=== PATIENT | male | born 1975 | race African-American/Black ===

== ENCOUNTER → 2018-05-13 | Outpatient (CLI) | payer OTHER ==
[~2018-05-13] MED LIST: CARI350T14 PO; COLC0.6T34 PO; EPIPEN 2-P0.3 MG/0.3 IJ; ESCITALOPRAM OX20 MG PO; GABA300C18 PO; GALC120P SQ; HYDR-2769 PO; INDO75CA3 PO; MONT10TA9 PO; NAPR500T8 PO; SUMA100T4 PO
--- NOTE | 2018-05-14 05:43 | KCIC ---
MRI lumbar spine without contrast HISTORY: Low back pain Multiple sagittal imaging of the lumbar spine was performed without contrast. The vertebral bodies are well aligned is no loss of vertebral stature. The conus medullaris tapers by suspected anatomic level. There is mild diffuse circumferential disc bulge without significant central stenosis. The neuroforamen are patent. There is mild signal changes in the L5-S1 intervertebral disc. IMPRESSION: No acute findings. Electronically signed by: Uvaldo Mayers III, MD (05/14/2018 5:40 AM) [facility]
== END | disposition home or self-care (01) ==
LOC: KCIC MRI 16:34
PROVIDERS: ATTEND Physician Assistant Medical
DX: M54.5 Low back pain (principal)
CPT/HCPCS: 72148

== ENCOUNTER → 2018-07-16 | Outpatient (CLI) | payer OTHER ==
--- NOTE | 2018-07-16 20:07 | PAIN ---
DATE OF SERVICE: 07/16/2018 INITIAL CONSULTATION FOR PAIN CLINIC CHIEF COMPLAINT: Low back and right lower extremity pain. HISTORY OF PRESENT ILLNESS: The patient is a 43-year-old male who presents with history of pain, low back, right lower extremity for several years, worse over the past six months or so. The patient is on his feet most of his working day. 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 He is working 12-16 hour days, most days, sometimes seven days a week. The patient reports the pain in the low back and then spread into the right lower extremity, posterior gluteus, posterior thigh, posterior calf, into the foot involving all the toes and mostly in the lateral aspect of the foot. The patient reports it is worse with standing, walking as time goes by, standing on his feet; awakens him from sleep at least three times a night; does not affect his bowel or bladder control, but does affect his ability to walk. He is starting to favor his right leg significantly, is causing some pain in the left side of his low back when he is standing on the left side more. The patient reports the pain is constant, sharp, stabbing, throbbing, shooting, numbness and radiating pain in the right leg, worse as time goes on with activity, cramping and aching as well in the back and the leg, also some pain in the upper and mid back, which has developed after his low back started hurting. The patient reports a disability rate from 0-10, 10 being the worst, is an 8 with family and home responsibilities, 7 with recreation, 6 with social activity, 9 with occupation and 3 with sexual behavior, 7 with social activity and 10 with life support activities. The patient has been taking hydrocodone as well as oxycodone and Soma, all of which do decrease the pain to a fairly significant amount about 50%. The patient has been doing some stretching and strengthening exercises on his own at home and also has his goddaughter who has been doing massage therapy to him as she is trained for therapy and has been doing some therapy on his own at home with her as well as stretching and strengthening exercises and massage techniques that she has been doing at home, but no official therapy or chiropractic treatments at this time. The patient continues to stretch each morning as well as during the day and during his working hours, especially at night when the pain is worse. The patient did have an MRI scan of the lumbar spine showing mild diffuse circumferential disk bulge without central stenosis and mild signal change at the L5-S1 vertebral disk. Other disks were normal. PAST MEDICAL HISTORY: Significant for sleep apnea, gastroesophageal reflux, coronary artery disease, status post stent placement about 10 years ago, arthritis, migraine headaches, and gout. PREVIOUS SURGERIES: Include laparoscopic cholecystectomy, kidney stone, and cardiac stent placement. ALLERGIES: THE PATIENT IS ALLERGIC TO PORK. CURRENT MEDICATIONS: Include sumatriptan, EpiPen, escitalopram, hydrocodone, indomethacin, gabapentin, montelukast, carisoprodol, naproxen, colchicine and Emgality once monthly. FAMILY HISTORY: Significant for hypertension in the patient's parents and myocardial infarction in the patient's father, also gout in the patient's mother. SOCIAL HISTORY: The patient drinks alcohol about two drinks a week. Does not smoke, does not use any illegal, illicit or recreational drugs. 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 REVIEW OF SYSTEMS: Positive for those items mentioned in history of present illness. All systems reviewed and otherwise negative. It is complete, full and well documented on the patient's chart. PHYSICAL EXAMINATION: VITAL SIGNS: The patient's blood pressure , pulse is 83, respirations 18, temperature is 98.3 degrees Fahrenheit, height 6 feet 5 inches, weight is 241 pounds. GENERAL: The patient is awake, alert, oriented, appropriate, very pleasant demeanor. HEENT: Head shows normocephalic, atraumatic. Extraocular muscles are intact and symmetrical. Oral cavity: Mucous membranes moist and pink. Dentition is intact. NECK: Shows anterior throat supple without palpable lymphadenopathy noted. Swallow reflex is symmetrical. CHEST: Shows normal on inspection. Breath sounds clear to auscultation bilaterally. HEART: Shows S1, S2 clear. No murmurs auscultated. ABDOMEN: Soft, obese, nontender, nondistended. No palpable organomegaly is noted. No rebound or guarding demonstrated. BACK: Shows spine grossly in the midline, normal-appearing cervical lordotic curvature, thoracic kyphotic curvature and lumbar lordotic curvature. Lumbar paraspinous musculature shows symmetrical on inspection, slightly more tender on the left side than the right with palpation in the mid and low distribution of the paraspinous muscles. No tenderness over the spinous processes, sacrum or sacroiliac regions. The patient has good rotational motion both laterally greater than 10 degrees right and left as well as extension greater than 10 degrees, forward flexion 45 degrees without significant increase in pain. EXTREMITIES: The patient's lower extremities are equal in color and appearance, warm and dry to the touch. Peripheral pulses are 1+ posterior tibial and dorsalis pedis pulses. No peripheral edema is noted on exam bilaterally. Gaenslen's and Oscar's maneuvers are negative bilaterally. The patient's straight leg raise is mildly positive on the right about 40 degrees, decreased with knee flexion, but left side is negative. The patient is douglas to stand, stand on the toes without significant difficulty or loss of balance, walking with a slight favoring gait favoring the right lower extremity. He is not using any assistive devices such as canes or walkers to ambulate. SKIN: Shows warm and dry, good turgor. No edema. No sores, rashes or bruising throughout. IMPRESSION: 1. This is a 43-year-old male with several-year history of increasing pain, low back, right lower extremity in a radicular fashion, worse over the past six months or so with L5-S1 dermatomal distribution in the radicular pain. 2. MRI scan of lumbar spine as noted with degenerative change at L5-S1. 3. Hypertension. 4. Arthritis. PLAN: Options were discussed with the patient including conservative medical management, physical therapy, interventional techniques and he would like to pursue interventional techniques as he is doing some physical therapy on his own, stretching and strengthening exercises. We will also order physical therapy for his midback for myofascial treatment and postural retraining. Also, we will preauthorize the patient for lumbar epidural steroid injection at the L5-S1 level in a translaminar approach for his L5-S1 neck and radicular symptoms. The patient understands and agrees. We will wait for preauthorization. The patient will return to clinic in approximately one week and we will plan on lumbar epidural steroid injection at that time. TANJA BARKLEY MD DR: SULY/mendez JOB#: [id number] / [id number]
== END | disposition home or self-care (01) ==
LOC: PNCL 08:07
PROVIDERS: ATTEND Anesthesiology
DX: M79.661 Pain in right lower leg (principal); M47.817 Spondylosis without myelopathy or radiculopathy, lumbosacral region; I10 Essential (primary) hypertension; M13.80 Other specified arthritis, unspecified site; M54.5 Low back pain; K21.9 Gastro-esophageal reflux disease without esophagitis; I25.10 Atherosclerotic heart disease of native coronary artery without angina pectoris; M10.9 Gout, unspecified; Z90.49 Acquired absence of other specified parts of digestive tract; Z95.818 Presence of other cardiac implants and grafts; G47.30 Sleep apnea, unspecified; Z91.018 Allergy to other foods
CPT/HCPCS: G0463

== ENCOUNTER → 2018-08-08 | Outpatient (CLI) | payer OTHER ==
[~2018-08-08] MED LIST changes: +IOHEXOL 180 MG/ML 10 ML VIAL. ONE; +MONT10TA49 PO; -MONT10TA9 PO; +methylPREDNISolone ACETATE 40 MG/ML VIAL. ONE; +methylPREDNISolone ACETATE 80 MG/ML VIAL. ONE
--- NOTE | 2018-08-08 19:25 | PAIN ---
DATE OF SERVICE: 08/08/2018 DIAGNOSES: Lumbar radiculopathy with lumbar degenerative disk disease. HISTORY OF PRESENT ILLNESS: The patient is a 43-year-old male who returns for followup status post initial evaluation and preauthorization for lumbar epidural steroid injection. The patient has obtained this now and would like to proceed, still pain in the low back, right lower extremity as it was previously and posterior gluteus, posterior thigh, posterior calf, worse with walking, standing, change in positions. The patient reports his pain on the last week at its worst has been 8 on a scale of 10, average 7, least is a 7 and is a 7 today. The patient reports no new motor or sensory deficits, no new bowel or bladder incontinence, still wakes him about 3-4 times a night from sleep. The patient reports it is aching, sharp, tight, shooting, tingling, radiating, severe and constant at times with standing and walking, especially at work when he is on his feet most of his working day. The patient reports no new motor or sensory deficits, no new bowel or bladder incontinence or other complaints. PHYSICAL EXAMINATION: VITAL SIGNS: The patient's blood pressure 138/64, pulse 70, respirations 18, temperature is 98.1 degrees Fahrenheit, height is 6 feet 5 inches, weight is 240 pounds. GENERAL: The patient is awake, alert, oriented, appropriate, very pleasant demeanor. HEENT: Shows normocephalic, atraumatic. Extraocular movements are intact and symmetrical. Oral cavity: Mucous membranes moist and pink. Dentition is intact. NECK: Shows anterior throat supple without palpable lymphadenopathy noted. Swallow reflex is symmetrical. CHEST: Shows normal on inspection. Breath sounds clear to auscultation bilaterally. HEART: Shows S1, S2 clear. No murmurs auscultated. ABDOMEN: Soft, nontender, nondistended. No palpable organomegaly is noted. No rebound or guarding demonstrated. BACK: Shows spine grossly in the midline. Normal appearing thoracic kyphosis and lumbar lordotic curvature. Lumbar paraspinous musculature shows symmetrical on inspection and palpation shows some moderate tenderness diffusely bilaterally, but without specific radiation. The patient shows good rotational motion of the lumbar spine, both laterally as well as extension and flexion. EXTREMITIES: Lower extremities show deep tendon reflexes 2+ in the patellar, 1+ tendo-calcaneus tendons. Motor exam is approximately 4 on a scale of 5 on the right and 5/5 on the left with dorsiflexion and extension. Peripheral pulses are 1+ posterior tibial. No peripheral edema is noted. Options were discussed with the patient. The patient's old chart was reviewed as his current medication regimen and updated. Current review of systems is updated today as well. We will proceed with a lumbar epidural steroid injection today with fluoroscopic guidance. Risks were again discussed including, but not limited to bleeding, infection, possibility of epidural hematoma, subsequent neurologic compromise, dural puncture, headaches, spinal cord and/or nerve damage, side effects of steroid medication and poor results regarding pain control. The patient understands and wished to proceed. The patient will return to clinic in approximately two weeks for followup, was counseled as to return appointment, activity level and side effects to be aware of. DIAGNOSES: Lumbar radiculopathy with lumbar degenerative disk disease. PROCEDURE: Lumbar epidural steroid injection, translaminar approach, L5-S1 level using C-arm fluoroscopic guidance under sterile prep and drape using local anesthetic. MEDICATION INJECTED: A total of 120 mg Depo-Medrol plus 10 mL preservative-free normal saline and 2 mL of contrast. CONDITION AT DISCHARGE: Stable. The patient tolerated the procedure well, had no complications. TANJA BARKLEY MD DR: SULY/mendez JOB#: [id number] / [id number]
== END ==
LOC: PNCL 13:51
PROVIDERS: ATTEND Anesthesiology
DX: M51.16 Intervertebral disc disorders with radiculopathy, lumbar region (principal)
CPT/HCPCS: 62323; J1030; J1040; Q9965

== ENCOUNTER → 2018-09-11 | Outpatient (CLI) | payer OTHER ==
[~2018-09-11] MED LIST changes: -IOHEXOL 180 MG/ML 10 ML VIAL. ONE; -methylPREDNISolone ACETATE 40 MG/ML VIAL. ONE; -methylPREDNISolone ACETATE 80 MG/ML VIAL. ONE
--- NOTE | 2018-09-11 23:32 | PAIN ---
DATE OF SERVICE: 09/11/2018 DIAGNOSES: Lumbar radiculopathy with lumbar degenerative disk disease. HISTORY OF PRESENT ILLNESS: The patient is a 43-year-old male who returns for followup status post lumbar epidural steroid injection x 1. The patient reports about 55-60% improvement after the last injection in the low back and the right lower extremity. The patient reports no new motor or sensory deficits, no new bowel or bladder incontinence, but still significant pain in the low back and the right leg. The patient reports he was increasing activity with greater ease and comfort initially, but now the pain has returned after the first 2 weeks or so with decreased pain. The patient reports no new motor or sensory deficits, describes the pain in the low back and right lower extremity, mostly in the posterior gluteus, posterior lateral thigh, posterior calf and ankle and foot, worse with walking and standing. Reports aching, sharp, tight, shooting, tingling, burning and stabbing, radiating, becoming more constant, more severe with activity, better with sitting or lying down, but for the most part is a 10 on a scale of 10 over the past week when he is on his feet, better with sitting and about 5 on a scale of 10, average of about 8. The patient reports his pain is an 8 today. The patient reports no new motor or sensory deficits, no new bowel or bladder incontinence. It still awakens him from sleep at night occasionally, but not every night, better with applying heat, taking pain medication or changing positions. PHYSICAL EXAMINATION: VITAL SIGNS: The patient's blood pressure 126/90, pulse 83, respirations 18, temperature 98.4 degrees Fahrenheit, height is 6 feet 5 inches and weight is 240 pounds. GENERAL: The patient is awake, alert, oriented, appropriate, very pleasant demeanor. HEENT: Head is normocephalic, atraumatic. Extraocular movements are intact, symmetrical. Oral cavity: Mucous membranes moist and pink. Dentition is intact. NECK: Shows anterior throat supple without palpable lymphadenopathy noted. No rebound or guarding demonstrated. BACK: Shows lumbar spine in the midline with inspection, on palpation has some moderate tenderness bilaterally, although symmetrical lumbar paraspinous musculature tenderness diffusely throughout the upper, middle and lower distribution of paraspinous muscles. The patient does show good rotational motion of lumbar spine, however, both laterally as well as extension and flexion without significant difficulty. EXTREMITIES: The patient's lower extremities show deep tendon reflexes at 2+ in the patellar, 1+ in the tendo-calcaneus tendons. Motor exam is approximately 4 on a scale of 5 on the right with dorsiflexion and extension, 5/5 on the left. Peripheral pulses are 1+ posterior tibial. No peripheral edema is noted. The patient continues to have a positive straight leg raise on the right side of about 35-40 degrees, decreased with knee flexion and negative on the left. Options were discussed with the patient. The patient's old chart was reviewed. His current medication regimen updated. Current review of systems updated today as well. We will proceed with preauthorization for a second lumbar epidural steroid injection. He did very well with the first injection, now the pain is returning, however, in the low back and right lower extremity in a L5-S1 dermatomal distribution on the right. We will preauthorize the patient for a second translaminar injection at L5-S1 level. In the meantime, we will try Medrol Dosepak. The patient was given instructions and side effects to be aware of with the medication and will follow up in approximately 2 weeks as scheduled for a second lumbar epidural steroid injection at that time. TANJA BARKLEY MD DR: SULY/mendez JOB#: [id number] / [id number]
== END | disposition home or self-care (01) ==
LOC: PNCL 13:29
PROVIDERS: ATTEND Anesthesiology
DX: M51.16 Intervertebral disc disorders with radiculopathy, lumbar region (principal)
CPT/HCPCS: G0463

== ENCOUNTER → 2019-03-11 | Outpatient (CLI) | payer OTHER ==
--- NOTE | 2019-03-11 09:25 | PAIN ---
DATE OF SERVICE: 03/11/2019 PROGRESS NOTE FOR PAIN CLINIC DIAGNOSES: Lumbar radiculopathy with lumbar degenerative disk disease. HISTORY OF PRESENT ILLNESS: The patient is a 43-year-old male, who returns for followup status post lumbar epidural steroid injection, last seen 09/11/2018. The patient was about 50% improvement overall. For the first few weeks, it was about 75%-80% improvement for about 3 weeks, then the pain began to return gradually over the last several months. The patient reports the pain has returned, but it is still about 50% improvement. The patient reports the pain is returning now more noticeably in the bilateral lower extremities, posterior gluteus, posterior thighs, more on the right than the left, but present bilaterally into the lower legs as well. The patient reports the pain in the knees also with walking, standing, changing positions, better with sitting or lying down. The patient reports it has been awakening him from sleep again over the past month or so, about 4-5 times at night. The patient reports it is aching, sharp and tight, stabbing and shooting in the low back, rates a 10 on a scale of 10 at its worst, 10 on average and 9 at its least, is a 9 today. The patient reports no new motor or sensory deficits. No new bowel or bladder incontinence. Initially, he was doing much better, doing distance walking, doing work activities, household activities, traveling with greater ease and comfort. Again the pain returning now for about the past 4 weeks or so. The patient reports no new changes, still doing some stretching and strengthening exercises on his own at home. Medications have been the same as well. The patient is still taking naproxen, gabapentin, indomethacin on a p.r.n. basis and hydrocodone and he has been on very stable dose of these as well. The patient reports no new motor or sensory deficits. No new bowel or bladder incontinence or other complaints. PHYSICAL EXAMINATION: VITAL SIGNS: The patient's blood pressure 137/97, pulse 91, respirations 18, temperature 97.9 degrees Fahrenheit, height is 6 feet 5 inches, weight is 242 pounds. GENERAL: The patient is awake, alert, oriented, appropriate, very pleasant demeanor. HEENT: Head shows normocephalic, atraumatic. Extraocular movements are intact and symmetrical. Oral cavity: Mucous membranes moist and pink. Dentition is intact. NECK: Shows anterior throat supple without palpable lymphadenopathy noted. Swallow reflex symmetrical. CHEST: Shows normal on inspection. Breath sounds are clear to auscultation bilaterally. HEART: Shows S1, S2 clear. No murmurs auscultated. ABDOMEN: Soft, nontender, nondistended. No palpable organomegaly is noted. No rebound or guarding demonstrated. BACK: Shows spine grossly in the midline. Normal-appearing thoracic kyphosis and lumbar lordotic curvature. Lumbar paraspinous muscle shows symmetrical on inspection, with palpation shows some moderate tenderness diffusely bilaterally going diffusely without significant radiation. The patient shows good rotational motion of the lumbar spine, both laterally as well as extension and flexion without significant difficulty. EXTREMITIES: The patient's lower extremities show deep tendon reflexes at 2+ patellar, 1+ tendo-calcaneus tendons. Motor exam is strong with 5/5 dorsiflexion, extension, quadriceps and hamstring flexion symmetrical. Peripheral pulses are 1+ posterior tibia. No peripheral edema is noted. The patient does have mild straight leg raise on the right, which is positive at about 45 degrees, decreased with knee flexion with pain in the posterior gluteus and posterior thigh, left side is negative. Gaenslen and Oscar maneuvers are negative bilaterally. PLAN: Options were discussed with the patient. The patient's old chart was reviewed as his current medication regimen updated. Current review of systems updated today as well and we will preauthorize the patient for an additional lumbar epidural steroid injection. He did very well with the first one last summer with pain returning now significantly in a radicular fashion at L5-S1 dermatomal distribution, more on the right lower extremity, but present bilaterally. We will preauthorize the patient for an L5-S1 translaminar epidural steroid injection. The patient will continue doing stretching and strengthening exercises on his own in the meantime as well as taking his anti-inflammatories and hydrocodone as prescribed. The patient will return to the clinic after preauthorization. We will try Medrol Dosepak in the meantime. The patient was given instruction as well as side effects to be aware of with the medication as well and we will follow up as scheduled. TANJA BARKLEY MD DR: SULY/mendez JOB#: [id number] / [id number] PRIYA Buck
== END | disposition home or self-care (01) ==
LOC: PNCL 08:25
PROVIDERS: ATTEND Anesthesiology
DX: M51.16 Intervertebral disc disorders with radiculopathy, lumbar region (principal)
CPT/HCPCS: G0463

== ENCOUNTER → 2019-03-24 | Outpatient (CLI) | payer OTHER ==
[~2019-03-24] MED LIST changes: +IOHEXOL 180 MG/ML 10 ML VIAL. ONE; +methylPREDNISolone ACETATE 40 MG/ML VIAL. ONE; +methylPREDNISolone ACETATE 80 MG/ML VIAL. ONE
--- NOTE | 2019-03-25 00:46 | PAIN ---
DATE OF SERVICE: 03/24/2019 PROGRESS NOTE FOR PAIN CLINIC DIAGNOSIS: Lumbar radiculopathy with lumbar degenerative disk disease. HISTORY OF PRESENT ILLNESS: The patient is a 43-year-old male who returns for followup status post evaluation and preauthorization for epidural steroid injection. The patient obtained that now and would like to proceed. The patient reports still significant pain in the low back, more on the right lower extremity than the left, but present bilaterally, posterior gluteus, posterior thigh, posterior calf, especially on the right side. The patient reports that 10 on a scale of 10 at its worst over the past week, 10 on average, 9 at its least and is a 9 today. The patient reports it is aching, sharp, dull, shooting, cramping, stabbing, burning and tingling in the back, radiating to the leg, becoming more constant and severe with walking, standing, changing positions, worse at work with standing on his feet. The patient reports it awakens him from sleep occasionally, but not more than every 8 hours or so. The patient reports it is better usually with sitting or lying down. No new motor or sensory deficits reported and no new bowel or bladder incontinence reported as well. PHYSICAL EXAMINATION: VITAL SIGNS: The patient's blood pressure 163/110, pulse 88, respirations 18, temperature 98.1 degrees Fahrenheit, height is 6 feet 5 inches, weight is 240 pounds. GENERAL: The patient is awake, alert, oriented, appropriate, very pleasant demeanor. HEENT: Head shows normocephalic, atraumatic. Extraocular movements are intact and symmetrical. Oral cavity: Mucous membranes moist and pink. Dentition is intact. NECK: Shows anterior throat is supple without palpable lymphadenopathy noted. Swallow reflex symmetrical. CHEST: Shows normal on inspection. Breath sounds are clear to auscultation bilaterally. HEART: Shows S1, S2 clear. No murmurs auscultated. ABDOMEN: Soft, nontender, nondistended. No palpable organomegaly is noted. No rebound or guarding demonstrated. BACK: Shows spine grossly in the midline. Normal appearing thoracic kyphosis and minor flattening of lumbar lordotic curvature. Lumbar paraspinous muscle shows symmetrical on inspection, with palpation shows some mild tenderness in the low lumbar distribution only without radiation. The patient has good rotational motion of lumbar spine, both laterally as well as extension and flexion without difficulty. EXTREMITIES: The patient's lower extremities show deep tendon reflexes at 2+ in the patellar, 1+ tendo-calcaneus tendons. Motor exam is strong with 4 on a scale of 5 on the right and 5/5 on the left with dorsiflexion, extension, quadriceps and hamstring flexion and 5/5 and equal bilaterally. Peripheral pulses are 1+. No peripheral edema is noted. Options were discussed with the patient. The patient's old chart was reviewed as his current medication regimen updated. Current review of systems is updated today as well. We will proceed with lumbar epidural steroid injection today with fluoroscopic guidance. Risks were again discussed including, but not limited to bleeding, infection, possibility of epidural hematoma, subsequent neurological compromise, dural puncture, headaches, spinal cord and/or nerve damage, side effects of steroid medication and poor results regarding pain control. The patient understands and wished to proceed. The patient will return to clinic in approximately 2 weeks for followup. She was counseled on return appointment, activity level and side effects to be aware of. DIAGNOSIS: Lumbar radiculopathy with lumbar degenerative disk disease. PROCEDURE: Lumbar epidural steroid injection, translaminar approach L5-S1 level using C-arm fluoroscopic guidance under sterile prep and drape using local anesthetic. MEDICATION INJECTED: A total of 120 mg Depo-Medrol plus 10 mL of preservative-free normal saline and 2 mL of contrast. CONDITION AT DISCHARGE: Stable. The patient tolerated procedure well, had no complications. TANJA BARKLEY MD DR: SULY/mendez JOB#: [id number] / [id number]
== END ==
LOC: PNCL 12:52
PROVIDERS: ATTEND Anesthesiology
DX: M51.16 Intervertebral disc disorders with radiculopathy, lumbar region (principal)
CPT/HCPCS: 62323; J1030; J1040; Q9965

== ENCOUNTER → 2019-08-04 | Outpatient (CLI) | payer OTHER ==
[~2019-08-04] MED LIST changes: -IOHEXOL 180 MG/ML 10 ML VIAL. ONE; -methylPREDNISolone ACETATE 40 MG/ML VIAL. ONE; -methylPREDNISolone ACETATE 80 MG/ML VIAL. ONE
--- NOTE | 2019-08-04 12:05 | PAIN ---
DATE OF SERVICE: 08/04/2019 PROGRESS NOTE FOR PAIN CLINIC DIAGNOSES: Lumbar radiculopathy with lumbar degenerative disk disease. HISTORY OF PRESENT ILLNESS: The patient is a 44-year-old male who returns for followup status post lumbar epidural steroid injection x 1, most recently 03/24/2019, patient did very well with about 70% improvement for several weeks after the injection. The patient reports the pain is returning now in the low back, bilateral lower extremities, more on the left than the right at this time. Previously, his right side was worse, but now the left side is becoming more painful in the posterior gluteus, posterior thighs and posterior calf on the left side and only into the thigh on the right. The patient reports it is worse with walking, standing and when he is working, he is on his feet most of his working day, which can be up to 12 hours or 15 sometimes. 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 The patient reports that the pain is stabbing, aching, sharp, shooting in the legs, radiating, becoming more constant with time and more activity and standing and severe. The patient reports it is a 10 on a scale of 10 at its worst over the past week, 8 on average, 8 at its least and is an 8 today. The patient reports no new motor or sensory deficits, better with sitting or lying down, does not awaken him from sleep generally. The patient was able to do his work activities much better after the last injection and decreased his pain medication utilization as well by about 2/3. PHYSICAL EXAMINATION: VITAL SIGNS: Today the patient's blood pressure is 134/100, pulse 75, respirations 20, temperature 98.0 degrees Fahrenheit, weight is 248 pounds. GENERAL: The patient is awake, alert, oriented, appropriate, very pleasant demeanor. HEENT: Shows normocephalic, atraumatic. Extraocular movements are intact and symmetrical. Oral cavity shows mucous membranes moist and pink. Dentition is intact. NECK: Shows anterior throat supple without palpable lymphadenopathy noted. Swallow reflex symmetrical. CHEST: Shows normal on inspection. Breath sounds are clear bilaterally. No rales, rhonchi or wheezes auscultated. HEART: Shows S1, S2 clear. ABDOMEN: Obese, soft, nontender, nondistended. BACK: Shows spine grossly in the midline. Normal appearing thoracic kyphosis and minor flattening of lumbar lordotic curvature. Lumbar paraspinous muscle shows symmetrical and with palpation shows some moderate tenderness, more on the left than the right in the middle and lower distribution of paraspinous muscles, but mildly tender on the right as well without radiation. The patient has good rotational motion of lumbar spine, both laterally as well as extension and flexion without significant increase in pain and difficulty. EXTREMITIES: Lower extremities show deep tendon reflexes at 2+ in the patellar, 1+ tendo-calcaneus tendons. Motor exam is approximately 5/5 on the right and 4/5 on the left with dorsiflexion, extension, quadriceps and hamstring flexion with some moderate pain in the back and the hip on the left side with hip flexion and resistance. Peripheral pulses are 1+ posterior tibia. No peripheral edema bilaterally. Options were discussed with the patient. The patient's old chart was reviewed as his current medication regimen updated. Current review of systems updated today as well. We will wait for preauthorization for a lumbar epidural steroid injection. The patient also has very tight appointments today, needs to reschedule for a day, which we will have more time off and off work as well. He rescheduled for a lumbar epidural steroid injection. We will make those arrangements and follow up as scheduled. TANJA BARKLEY MD DR: SULY/mendez JOB#: [id number] / [id number]
== END | disposition home or self-care (01) ==
LOC: PNCL 10:41
PROVIDERS: ATTEND Anesthesiology
DX: M51.16 Intervertebral disc disorders with radiculopathy, lumbar region (principal); E66.9 Obesity, unspecified; Z68.45 Body mass index [BMI] 70 or greater, adult
CPT/HCPCS: G0463